=== PATIENT | male | born 1945 | race Caucasian/White ===

== ENCOUNTER 2016-09-08 10:11 | Inpatient (IN) | payer OTHER ==
[~2016-09-08] VITALS: Ht 182.9 cm; Wt 112.0 kg
[~2016-09-08 10:11] MED LIST: ALTACE5 MG PO; Altace PO; Aspirin E.C. PO; CRESTOR40 MG PO; FISH OIL 1,0001 EAC7 PO; GLUCOPHAGE500 MG PO; Glucophage PO; LEVOXYL112 MCG PO; LO-DOSE ASPIRIN81 M1 PO; LOPRESSOR100 M1 PO; Levothroid,Synthroid PO; NORCO 5/3251 TABLET PO; OMEGA 3-6-91200 MG PO; PRILOSEC20 MG PO; PriLOSEC PO; TYLENOL ARTHRI650 MG PO; Toprol XL PO; Vicodin,Norco 5/325 PO
[2016-09-08 13:06] LABS: HEMATOCRIT 41.4 % (38.0-50.0); MCH 29.8 PG (29.0-34.0); MCHC 34.3 G/DL (30.0-36.0); MEAN PLAT.VOLUME 9.4 uM^3 (9.0-12.4); PLATELET COUNT 360 K/uL (156-360); RBC DIS.WIDTH-CV 12.5 % (11.8-14.6); RBC DIS.WIDTH-SD 39.8 % (39-53); RED BLOOD COUNT 4.76 M/uL (4.00-5.50); WHITE BLOOD COUNT 7.8 K/uL (4.1-10.2)
[2016-09-08 13:16] LABS: CHLORIDE 101 mEq/L (99-109); POTASSIUM 4.7 mEq/L (3.7-5.4); SODIUM 135 mEq/L (136-147)
[2016-09-08 13:19] LABS: ANION GAP 10 MEQ/L (2-14); GLUCOSE 88 mg/dL (70-99)
[2016-09-08 13:22] LABS: GFR ESTIMATE (CALCULATED) > 59 mL/min/; UREA NITROGEN (BUN) 11 mg/dL (9-23)
[2016-09-08 13:40] LABS: TROP-I INTERPRETATION NEGATIVE; TROPONIN-I < 0.01 ng/mL (0.0-0.30)
[2016-09-08 13:44] LABS: TOTAL BILIRUBIN 0.5 mg/dL (0.0-1.0)
[2016-09-08 13:45] LABS: ALKALINE PHOSPHATASE 64 IU/L (3-129)
[2016-09-08 13:48] LABS: CREATINE KINASE 282 IU/L (1-294); DIRECT BILIRUBIN 0.2 mg/dL (0.0-0.3)
[2016-09-08 13:50] LABS: ADD MIUA? NO; BILIRUBIN NEGATIVE; BLOOD NEGATIVE; COLOR YELLOW ((YELLOW)); GLUCOSE (STRIP) NEGATIVE; KETONES NEGATIVE; LEUKOCYTES NEGATIVE; NITRITE NEGATIVE; PROTEIN (STRIP) NEGATIVE; SPECIFIC GRAVITY 1.014 (1.000-1.030); UCUL ADDED? NO; UROBILINOGEN 0.2 MG/DL (0.2-1.0)
[2016-09-08] MEDS ORDERED: TOPROL XL100 MG PO (14:48)
[2016-09-08] MEDS ORDERED: AZITHROMYCIN250 MG1 PO (14:50)
[2016-09-08 18:30] VITALS: BP 119/65
[2016-09-08 20:37] VITALS: BP 116/67
[2016-09-08 23:50] VITALS: BP 125/75
[2016-09-09 04:38] VITALS: BP 125/72
[2016-09-09 06:16] LABS: HEMATOCRIT 39.8 % (38.0-50.0); MCH 29.8 PG (29.0-34.0); MCHC 34.4 G/DL (30.0-36.0); MCV 86.5 FL (86-99); PLATELET COUNT 315 K/uL (156-360); RBC DIS.WIDTH-CV 12.3 % (11.8-14.6); RBC DIS.WIDTH-SD 39.3 % (39-53)
[2016-09-09 06:42] LABS: ALKALINE PHOSPHATASE 58 IU/L (3-129); ANION GAP 8 MEQ/L (2-14); CHLORIDE 102 MEQ/L (99-109); GFR ESTIMATE (CALCULATED) > 59 mL/min/; GLUCOSE 88 mg/dL (70-99); POTASSIUM 4.2 MEQ/L (3.7-5.4); SAMPLE HEMOLYSIS CHECK 0; SAMPLE ICTERIC CHECK 0; SAMPLE LIPEMIA CHECK 0; SODIUM 134 MEQ/L (136-147); TOTAL BILIRUBIN 0.6 MG/DL (0.0-1.0); UREA NITROGEN (BUN) 12 mg/dL (9-23)
[2016-09-09 07:56] VITALS: BP 138/80
[2016-09-09 10:13] LABS: LYME DISEASE SEROLOGY SCREEN NEGATIVE (NEGATIVE)
[2016-09-09 16:24] VITALS: BP 125/76
[2016-09-09 19:00] VITALS: BP 132/74
[2016-09-09 22:55] VITALS: BP 122/61
[2016-09-10 03:54] VITALS: BP 133/71
[2016-09-10 07:24] VITALS: BP 125/73
[2016-09-10 12:20] VITALS: BP 119/67
[2016-09-10] MEDS ORDERED: NEURONTIN100 MG PO (12:32)
== END 2016-09-10 13:51 | disposition home or self-care (01) | DRG 552 ==
LOC: EME 10:11 → EDOF 16:20 → 3EAST 16:20
PROVIDERS: Family Medicine; Physician Assistant Medical
DX: M54.16 Radiculopathy, lumbar region (principal); G62.9 Polyneuropathy, unspecified; M79.1 Myalgia; B34.9 Viral infection, unspecified; E11.9 Type 2 diabetes mellitus without complications; I10 Essential (primary) hypertension; K21.9 Gastro-esophageal reflux disease without esophagitis; E66.9 Obesity, unspecified; Z68.33 Body mass index [BMI] 33.0-33.9, adult; I25.2 Old myocardial infarction; Z95.1 Presence of aortocoronary bypass graft; Z79.84 Long term (current) use of oral hypoglycemic drugs; Z79.82 Long term (current) use of aspirin; Z87.442 Personal history of urinary calculi; Z87.891 Personal history of nicotine dependence; Z91.81 History of falling; Z88.5 Allergy status to narcotic agent
CPT/HCPCS: 36415; 70450; 70544; 70553; 72148; 72156; 80048; 80053; 80076; 81003; 82550; 82553; 82607; 84443; 84484; 85025; 85027; 85651; 86618; 93005; 99281; 99285; J1650; J3010; J7030